=== PATIENT | female | born 1965 | race Caucasian/White ===

== ENCOUNTER 2022-01-06 10:55 | Emergency (ER) | payer OTHER, SELFPAY ==
[2022-01-06 10:58] VITALS: BP 133/85; PULSE 75; RESP 18; TEMP 36.4; O2SAT 97; BMI 39.2
--- NOTE | 2022-01-06 11:04 | ED.GENADULT ---
HPI - General Adult General Time Seen by Provider: 11:04 Date Seen: 01/06/22 Chief complaint: Extremity Pain/Injury, Lower Stated complaint: Fell Time Seen by Provider: 01/06/22 11:00 History of Present Illness HPI narrative: Ilene is a 56-year-old female presents emerged department via private car with left knee injury. Patient states last night while walking her dog, over by the [employer], she was trying to hang a speaker upon of the vehicle to help the construction workers there, she got up on a step to hang in, when she came back she lost her balance landing mostly on her right knee with her foot planted. She then fell forward, hitting her left knee on the ground and it hyper flexed, she also sustained some facial injury on the side of the vehicle, hitting her left and right face, no loss of consciousness, she is not currently on blood thinners, patient has history of left knee pain, she sees Dr. [facility] on Monday to discuss surgical options, recently she has had 3 gel injections in that knee, that is starting to wear off. Pain is mostly in the posterior knee, she also sustained abrasion to her knee cap, she is using crutches to ambulate, she did use a knee brace. She was concerned about ligament damage. She has taken OTCs for pain control with Motrin and Tylenol. She denies any other injury. Pain is 6/10. No radiation. No numbness or tingling lower extremities. No other concerns at this time. Related Data Allergies Allergy/AdvReac Type Severity Reaction Status Date / Time prednisone Allergy Verified 01/06/22 12:41 predisone Allergy Mild Uncoded 01/06/22 11:04 sterroid Allergy Mild Uncoded 01/06/22 11:04 Review of Systems Status of ROS: Reports: 10 or more systems reviewed and unremarkable except as noted in History and below PFSH PFS Social History Smoking Status: Former smoker What tobacco products do you use: cigarettes Do you use any of these nicotine containing products: None Second hand tobacco smoke exposure: No How often do you have a drink containing alcohol: 2-3 times a week How many standard drinks containing alcohol do you have on a typical day: 1 or 2 How often do you have six or more drinks on one occasion: Less than monthly AUDIT-C Alcohol total score: 4 Non-prescribed substance use: denies use Exam Const: Vital Signs, click to edit/add: Vital Signs - 24 hr 01/06/22 10:58 01/06/22 12:37 Temperature 97.5 F L Pulse Rate [Left P ulse Oximeter] 99 Pulse Rate [Right Radial] 75 Respiratory Rate 18 Blood Pressure [Ri ght Upper Arm] 133/85 Pulse Oximetry 97 Common normals: no apparent distress, oriented x3 and alert Orientation/consciousness: Yes awake HENMT: Common normals: normocephalic Head and scalp: normocephalic Other: Small upper right lip contusion, dentition intact, small contusion to her right maxillary area, no step-offs, nontender. Eye: Common normals: PERRL, EOMs intact bilaterally and conjunctivae normal Conjunctiva: conjunctiva(e) normal Pupil: PERRL Neck & C-Spine: Common normals: full ROM and supple Cervical spine: cervical ROM normal and cervical ROM abnormal Chest: Common normals: inspection of chest normal Resp: Common normals: normal respiratory effort and clear to auscultation bilaterally Auscultation: clear to auscultation bilaterally Cardio: Common normals: regular rate, S1 normal heart sound and S2 normal heart sound Rate: regular rate Heart sounds: S1 normal and S2 normal GI: Common normals: Normal to inspection, nondistended, normoactive bowel sounds present : Common normals: no CVA tenderness Bladder/kidney exam: no CVA tenderness Back & Pelvis: Common normals: no CVA tenderness, thoracic and lumbar spine normal to inspection and no thoracic nor lumbar tenderness Extremity: Other: Left knee: Small abrasion to the patella, full range of motion on extension and flexion, patella tracks normally, mild tenderness to palpation the medial joint line, mild tenderness to palpation the posterior knee, small effusion present, valgus and varus comparable bilaterally, Amaury's comparable bilaterally. CMS intact Neuro: Common normals: oriented x3 Sensorium/orientation: awake and alert Course Course Hospital Course: Workup will include x-ray left knee four views, IM dose Toradol 30 mg for pain, likely discharge with knee immobilizer, crutches for support, she has close follow-up with Orthopedics this Monday. Patient was in agreement Reevaluation(s) Reevaluation #1: Patient is feeling better after above care given, imaging showed no acute fractures, did show degenerative changes this was read by me. Plan to place knee immobilizer, she can use crutches for support, she has followup with Orthopedics this Monday, work note given over the next 2 days. She continue with Tylenol and Motrin every 4-6 hours as needed for pain, RICE instructions given.All questions answered. Vital Signs Vital signs: Initial Vital Signs Temperature 97.5 F L 01/06/22 10:58 Temperature Source Temporal Artery Scan 01/06/22 10:58 Pulse Rate 75 01/06/22 10:58 Pulse Rhythm 01/06/22 10:58 Respiratory Rate 18 01/06/22 10:58 Blood Pressure 133/85 01/06/22 10:58 Blood Pressure Mean 101 01/06/22 10:58 Blood Pressure Position Sitting 01/06/22 10:58 Pulse Oximetry 97 01/06/22 10:58 Oxygen Delivery Method 01/06/22 10:58 Vital Signs Temperature 97.5 F L 01/06/22 10:58 Pulse Rate 75 01/06/22 10:58 Respiratory Rate 18 01/06/22 10:58 Blood Pressure 133/85 01/06/22 10:58 Pulse Oximetry 97 01/06/22 10:58 Temperature 97.5 F L 01/06/22 10:58 Pulse Rate 99 01/06/22 12:37 Respiratory Rate 18 01/06/22 10:58 Blood Pressure 133/85 01/06/22 10:58 Pulse Oximetry 97 01/06/22 10:58 Discharge Plan Discharge Clinical Impression: Injury of knee, left Patient Disposition: Home, Self-Care Condition: Improved Instructions: Crutch Instructions (ED), R.I.C.E. Treatment (ED) Additional Instructions: To follow up with Orthopedics as scheduled this Monday, to continue with Motrin or Tylenol every 4-6 hours as needed for pain. Return precautions given. Activity Level: Activity as Tolerated Discharge Diet: Regular Follow Up/Referrals: Shani Hastings PA-C [Primary Care Provider] - Stand Alone Forms: MyHealth Info Instructions
--- NOTE | 2022-01-06 11:57 | CRLHL7_ITS ---
For Patients: As a result of the Century Cures Act, medical imaging exams and procedure reports are released immediately into your electronic medical record. You may view this report before your referring provider. If you have questions, please contact your health care provider. Indication: hyperflexion of knee, posterior knee pain. Technique: Left knee 3 views Comparison: None Findings: Medial compartment narrowing and spurring. Spurring of the tibial spines and at the intercondylar notch. Patellofemoral narrowing and spurring with trace joint effusion. Chronic loose bodies anterior proximal tibia. Impression: No sign of acute injury. Degenerative joint disease. Dictated by Tristen Lomeli MD @ 01/06/2022 12:37:33 PM (Electronically Signed)
--- NOTE | 2022-01-06 11:58 | ED.GENADULT ---
HPI - General Adult General Chief complaint: Extremity Pain/Injury, Lower Stated complaint: Fell Time Seen by Provider: 01/06/22 11:00 Related Data Allergies Allergy/AdvReac Type Severity Reaction Status Date / Time prednisone Allergy Verified 01/06/22 12:41 predisone Allergy Mild Uncoded 01/06/22 11:04 sterroid Allergy Mild Uncoded 01/06/22 11:04 PFSH PFSH Social History Smoking Status: Former smoker What tobacco products do you use: cigarettes Do you use any of these nicotine containing products: None Second hand tobacco smoke exposure: No How often do you have a drink containing alcohol: 2-3 times a week How many standard drinks containing alcohol do you have on a typical day: 1 or 2 How often do you have six or more drinks on one occasion: Less than monthly AUDIT-C Alcohol total score: 4 Non-prescribed substance use: denies use Exam Const: Vital Signs, click to edit/add: Vital Signs - 24 hr 01/06/22 10:58 01/06/22 12:37 Temperature 97.5 F L Pulse Rate [Left P ulse Oximeter] 99 Pulse Rate [Right Radial] 75 Respiratory Rate 18 Blood Pressure [Ri t Upper Arm] 133/85 Pulse Oximetry 97 Course Course Hospital Course: Workup will include x-ray left knee four views, IM dose Toradol 30 mg for pain, likely discharge with knee immobilizer, crutches for support, she has close follow-up with Orthopedics this Monday. Patient was in agreement Vital Signs Vital signs: Initial Vital Signs Temperature 97.5 F L 01/06/22 10:58 Temperature Source Temporal Artery Scan 01/06/22 10:58 Pulse Rate 75 01/06/22 10:58 Pulse Rhythm 01/06/22 10:58 Respiratory Rate 18 01/06/22 10:58 Blood Pressure 133/85 01/06/22 10:58 Blood Pressure Mean 101 01/06/22 10:58 Blood Pressure Position Sitting 01/06/22 10:58 Pulse Oximetry 97 01/06/22 10:58 Oxygen Delivery Method 01/06/22 10:58 Vital Signs Temperature 97.5 F L 01/06/22 10:58 Pulse Rate 75 01/06/22 10:58 Respiratory Rate 18 01/06/22 10:58 Blood Pressure 133/85 01/06/22 10:58 Pulse Oximetry 97 01/06/22 10:58 Temperature 97.5 F L 01/06/22 10:58 Pulse Rate 99 01/06/22 12:37 Respiratory Rate 18 01/06/22 10:58 Blood Pressure 133/85 01/06/22 10:58 Pulse Oximetry 97 01/06/22 10:58 Discharge Plan Discharge Clinical Impression: Injury of knee, left Patient Disposition: Home, Self-Care Condition: Improved Instructions: Crutch Instructions (ED), R.I.C.E. Treatment (ED) Additional Instructions: To follow up with Orthopedics as scheduled this Monday, to continue with Motrin or Tylenol every 4-6 hours as needed for pain. Return precautions given. Activity Level: Activity as Tolerated Discharge Diet: Regular Follow Up/Referrals: Shani Hastings PA-C [Primary Care Provider] - Stand Alone Forms: My[facility] Info Instructions
[2022-01-06 12:37] VITALS: PULSE 99
[2022-01-06] MEDS: KETOROLAC 30 MG/ML inj IM (13:05)
== END 2022-01-06 13:25 | disposition home or self-care (01) ==
PROVIDERS: Emergency Provider Student in an Organized Health Care Education/Training Program; PCP Physician Assistant Medical
DX: S89.82XA Other specified injuries of left lower leg, initial encounter (principal); W17.89XA Other fall from one level to another, initial encounter
CPT/HCPCS: 73562; 96372; 99284; J1885

== ENCOUNTER 2024-01-30 00:33 | Emergency (ER) | payer OTHER, SELFPAY ==
[2024-01-30 00:44] VITALS: BP 168/97; PULSE 65; RESP 18; TEMP 36; O2SAT 97; BMI 38.0
[2024-01-30 01:09] LABS: Strep A DNA Probe* NOT DETECTED (Not Detectd)
--- NOTE | 2024-01-30 01:23 | ED.GENADULT ---
HPI - General Adult General Chief complaint: Sore Throat Stated complaint: Possible strep Time Seen by Provider: 01/30/24 01:13 Source: patient Mode of arrival: ambulatory Limitations: no limitations History of Present Illness HPI narrative: 58-year-old female presents to the emergency department with a 4 day history of sore throat, postnasal drip and some congestion. No difficulty breathing, no difficulty swallowing. Has low-grade fever at home, no true fevers. She is not immunocompromised. She has not tried taking any anti-inflammatory medications she has been intermittently using Tylenol and a pineapple extract to help with her symptoms. She reports that she attempted to make an appointment in urgent care that they did not have appointments available. There was no significant worsening of her symptoms overnight that caused her to come to the emergency department in the wee hours. No pertinent travel. Reports that her past medical history is benign, no major long-term health problems no prescription medications. Reports intolerance to steroids and other anti-inflammatory medications. It does not sound as though this is anaphylactic. Nonsmoker. ROS notable for the generalized and HEENT symptoms as above, otherwise denies times 12 systems. Related Data Home Medications ?Medication ?Instructions ?Recorded ?Confirmed No Known Home Medications 01/30/24 01/30/24 Allergies Allergy/AdvReac Type Severity Reaction Status Date / Time prednisone Allergy Verified 01/06/22 12:41 predisone Allergy Mild Uncoded 01/06/22 11:04 sterroid Allergy Mild Uncoded 01/06/22 11:04 PFSH PFS Social History Smoking Status: Former smoker What tobacco products do you use: cigarettes Smoking quit date/years: >15 years ago Do you use any of these nicotine containing products: None Second hand tobacco smoke exposure: No How often do you have a drink containing alcohol: 2-3 times a week How many standard drinks containing alcohol do you have on a typical day: 1 or 2 How often do you have six or more drinks on one occasion: Less than monthly AUDIT-C Alcohol total score: 4 Non-prescribed substance use: denies use service: No Exam Const: Vital Signs, click to edit/add: Vital Signs - 24 hr 01/30/24 00:44 Temperature 96.8 F L Pulse Rate [Pulse Oximeter] 65 Respiratory Rate 18 Blood Pressure [Ri ght Upper Arm] 168/97 H Pulse Oximetry 97 Oxygen Delivery Me thod Room Air Documenting provider has reviewed patient's vital signs: yes Common normals: no apparent distress General appearance: cooperative, comfortable and well kempt HENMT: Common normals: normocephalic and TM's normal bilaterally Head and scalp: normocephalic Tympanic membrane: TM's normal bilaterally Other: Nose with some mild clear mucus rhinorrhea. Oropharynx with a minor postnasal drip. No significant swelling of the tonsils. Uvula mildly swollen, no erythema or exudate. Moist mucous membranes with normal dentition, tongue and oral mucosa otherwise. Eye: Common normals: conjunctivae normal General eye: normal appearance of both eyes Conjunctiva: conjunctiva(e) normal Neck & C-Spine: Other: Normal range of motion with no signs of stiffness. Mild anterior cervical and submandibular lymphadenopathy. Resp: Common normals: normal respiratory effort, no use of accessory muscles and clear to auscultation bilaterally Effort & inspection: able to speak in complete sentences Auscultation: clear to auscultation bilaterally Cardio: Common normals: regular rate, regular rhythm, S1 normal heart sound, S2 normal heart sound and no murmurs Rate: regular rate Rhythm: regular rhythm Heart sounds: S1 normal and S2 normal Psych: Appearance: well kempt Attitude: engaged Activity/motor behavior: appropriate eye contact Insight: insight good Judgement: judgment good Skin: Common normals: no rashes or lesions noted General skin exam: no rashes or lesions noted Course Course ED Course: Patient requesting strep test, declines viral swabs. This is completed. Strep test is negative, as expected. Discussed prednisone, anti-inflammatories, she declines this. Counseled on pushing fluids, Tylenol as needed for symptomatic care. Reviewed the alarm symptoms that would warrant ED presentation. She verbalized understanding and agreement. Will follow up with primary care if not improving in another couple of weeks. Most current pharyngitis cases that we are seeing are COVID and her lasting about 10 days, this was reviewed. Vital Signs Vital signs: Initial Vital Signs Temperature 96.8 F L 01/30/24 00:44 Temperature Source Temporal Artery Scan 01/30/24 00:44 Pulse Rate 65 01/30/24 00:44 Pulse Rhythm Regular 01/30/24 00:44 Respiratory Rate 18 08/06/24 00:44 Blood Pressure 168/97 H 01/30/24 00:44 Blood Pressure Mean 120 H 01/30/24 00:44 Blood Pressure Position Sitting 01/30/24 00:44 Pulse Oximetry 97 01/30/24 00:44 Oxygen Delivery Method Room Air 01/30/24 00:44 Vital Signs Temperature 96.8 F L 01/30/24 00:44 Pulse Rate 65 01/30/24 00:44 Respiratory Rate 18 01/30/24 00:44 Blood Pressure 168/97 H 01/30/24 00:44 Pulse Oximetry 97 01/30/24 00:44 Oxygen Delivery Method Room Air 01/30/24 00:44 Temperature 96.8 F L 01/30/24 00:44 Pulse Rate 65 01/30/24 00:44 Respiratory Rate 18 01/30/24 00:44 Blood Pressure 168/97 H 01/30/24 00:44 Pulse Oximetry 97 01/30/24 00:44 Oxygen Delivery Method Room Air 01/30/24 00:44 Medical Decision Making Lab Data Lab results reviewed: Yes I reviewed the patient's lab results Lab results narrative: Strep negative, as expected. COVID swab declined. Labs: Lab Results 01/30/24 Range/Units 00:40 Group A Strep DNA NOT DETECTED (Not Detectd) Discharge Plan Discharge Clinical Impression: Acute viral pharyngitis Patient Disposition: Home, Self-Care Condition: Stable Instructions: Pharyngitis (ED) Additional Instructions: As we discussed, your strep test is negative. Your infection does not seem to be caused by a bacteria. It does have the appearance of a viral infection. There are several circulating strains right now that could be the culprit. You did decline a COVID swab. Most of the cases that we are seeing are COVID right now but are also seeing some summer Coxsackie virus, adenovirus and the other usual suspects. Thankfully, they do not seem to cause any severe illness. We discussed the risks and benefits of anti-inflammatories, steroids and other medications but we both agree that the risk seems to outweigh the benefit for you. Most of these viruses last about 10 days. I recommend Tylenol, salt water gargles to help with her symptoms. Check in with her primary care provider if you are not improving in 3 weeks from onset of illness. Come back to the emergency department if you have difficulty breathing, cannot swallow any liquids for more than 12 hours, signs of severe weakness or illness. Activity Level: No Restrictions Discharge Diet: Regular Prescriptions: No Action No Known Home Medications Follow Up/Referrals: Shani Hastings PA-C [Primary Care Provider] - Stand Alone Forms: [facility] Info Instructions
== END 2024-01-30 01:32 | disposition home or self-care (01) ==
LOC: ED 01:26
PROVIDERS: Emergency Provider Family Medicine; PCP Physician Assistant Medical
DX: J02.9 Acute pharyngitis, unspecified (principal)
CPT/HCPCS: 87651; 99283